=== PATIENT | female | born 1945 | race Caucasian/White ===

== ENCOUNTER 2021-11-25 19:09 | Inpatient (IN) ==
[2021-11-25] MEDS ORDERED: Naloxone 0.4 MG/ML INJ IVP PRN (23:36)
[2021-11-25] MEDS ORDERED: Ondansetron 4 MG/2 ML VIAL IVP PRN (23:36)
[2021-11-25] MEDS ORDERED: Azithromycin 500 MG in 0.9 % Sodium Chloride 250 ML IVPB SCH (23:45)
[2021-11-25] MEDS ORDERED: cefTRIAXone 1,000 MG in 0.9 % Sodium Chloride 10 ML IVP SCH (23:45)
[2021-11-25] MEDS: DilTIAZem 50 MG/50 ML IV.SOLN IVC SCH (23:59)
[2021-11-26] MEDS ORDERED: Dextrose Gel 15 GM/37.5 ML TUBE PO PRN ×2 (01:19)
[2021-11-26] MEDS ORDERED: *HR* Dextrose 50 % in Water (Syg) 50 ML SYRINGE IVP PRN (01:19)
[2021-11-26] MEDS ORDERED: D5% in Water 1,000 ML IVC PRN (01:19)
[2021-11-26] MEDS: DilTIAZem 50 MG/50 ML IV.SOLN IVC SCH (03:20)
[2021-11-26] MEDS: Ipratropium 1 PUFF INHALER IH SCH ×7 (03:31→23:34)
[2021-11-26 05:57] LABS: Alanine Aminotransferase 18 Units/L (7-52); Albumin/Globulin Ratio 0.9 (1.1-2.2); Alkaline Phosphatase 121 Units/L (34-104); Aspartate Amino Transferase 35 Units/L (13-39); BUN/Creatinine Ratio 28 (6-26); Bilirubin,Total 0.8 mg/dL (0.3-1.0); Blood Urea Nitrogen 28 mg/dL (8-23); Calcium 9.1 mg/dL (8.6-10.3); Carbon Dioxide 24 mEq/L (23-29); Chloride 105 mEq/L (98-107); Globulin 3.5 g/dL (2.4-3.5); Glucose 131 mg/dL (70-105); Magnesium 2.1 mg/dL (1.6-2.6); Osmolality,Calculated 297 (280-300); Phosphorous 2.7 mg/dL (2.7-4.5); Potassium 4.2 mEq/L (3.5-5.1); Sodium 140 mEq/L (136-145); Total Protein 6.5 g/dL (6.4-8.9); Troponin I 0.05 ng/mL (< 0.04); eGFR For African Americans > 60 (> 60); eGFR For Non-African Americans 54 (> 60)
[2021-11-26] MEDS: Insulin LISPRO 300 UNITS/3 ML VIAL SUBQ SCH ×2 (06:25→11:43)
[2021-11-26] MEDS ORDERED: Cefepime HCl 2,000 MG in 0.9 % Sodium Chloride 10 ML IVP SCH (08:00)
[2021-11-26 13:22] LABS: Hemoglobin 11.2 g/dL (11.5-15.4); Mean Corpuscular Hemoglobin 29.3 pg (28.0-33.3); Mean Corpuscular Volume 91.6 fL (83.0-100.0); Platelet Count 178 K/mcL (140-400); Red Blood Count 3.82 M/mcL (3.82-4.97); Red Cell Distribution Width 14.3 % (11.5-14.5); White Blood Count 10.5 K/mcL (4.3-11.1)
[2021-11-26] MEDS ORDERED: *HR* Metoprolol 5 MG/5 ML VIAL IVP PRN (13:36)
[2021-11-26 14:03] LABS: Basophils # 0.1 K/mcL (0.0-0.2); Burr Cells 1+ (Not Present); Lymphocytes # 1.5 K/mcL (0.6-4.6); Neutrophils # 8.9 K/mcL (1.6-8.9); Platelet Estimate Normal (Normal); Reactive Lymphocytes Present (Not Present)
[2021-11-26 14:04] LABS: Poikilocytosis 1+ (Not Present)
[2021-11-26] MEDS: Acetaminophen 325 MG TABLET PO PRN (15:22)
[2021-11-26] MEDS: Cefepime HCl 2,000 MG in 0.9 % Sodium Chloride 10 ML IVP SCH (21:02)
[2021-11-27 03:11] LABS: Alanine Aminotransferase 19 Units/L (7-52); Albumin 2.9 g/dL (3.5-5.7); Albumin/Globulin Ratio 0.9 (1.1-2.2); Alkaline Phosphatase 95 Units/L (34-104); Aspartate Amino Transferase 34 Units/L (13-39); BUN/Creatinine Ratio 33 (6-26); Bilirubin,Direct 0.1 mg/dL (0.0-0.2); Bilirubin,Indirect 0.5 mg/dL (0.0-1.0); Bilirubin,Total 0.6 mg/dL (0.3-1.0); Blood Urea Nitrogen 35 mg/dL (8-23); C-Reactive Protein 104 mg/L (Less than 10); Carbon Dioxide 24 mEq/L (23-29); Chloride 108 mEq/L (98-107); Globulin 3.3 g/dL (2.4-3.5); Glucose 131 mg/dL (70-105); Osmolality,Calculated 304 (280-300); Potassium 3.5 mEq/L (3.5-5.1); Sodium 142 mEq/L (136-145); Total Protein 6.2 g/dL (6.4-8.9); eGFR For African Americans > 60 (> 60); eGFR For Non-African Americans 50 (> 60)
[2021-11-27] MEDS: Ipratropium 1 PUFF INHALER IH SCH ×6 (04:30→22:55)
[2021-11-27] MEDS: Insulin LISPRO 300 UNITS/3 ML VIAL SUBQ SCH ×2 (07:41→17:50)
[2021-11-27] MEDS: Cefepime HCl 2,000 MG in 0.9 % Sodium Chloride 10 ML IVP SCH ×2 (08:43→20:55)
[2021-11-27] MEDS: Azithromycin 250 MG TABLET PO SCH (14:51)
[2021-11-28 03:00] LABS: BUN/Creatinine Ratio 39 (6-26); Blood Urea Nitrogen 39 mg/dL (8-23); Calcium 8.6 mg/dL (8.6-10.3); Carbon Dioxide 19 mEq/L (23-29); Chloride 108 mEq/L (98-107); Glucose 101 mg/dL (70-105); Osmolality,Calculated 296 (280-300); Potassium 4.1 mEq/L (3.5-5.1); Sodium 138 mEq/L (136-145); eGFR For African Americans > 60 (> 60); eGFR For Non-African Americans 54 (> 60)
[2021-11-28] MEDS: Ipratropium 1 PUFF INHALER IH SCH ×6 (03:50→23:57)
[2021-11-28 05:35] LABS: Basophils # 0.1 K/mcL (0.0-0.2); Basophils % 0.4 %; Eosinophils % 0.1 %; Hematocrit 32.8 % (35.3-44.9); Hemoglobin 10.4 g/dL (11.5-15.4); Immature Granulocytes % 1.9 % (0-4); Lymphocytes # 1.2 K/mcL (0.6-4.6); Lymphocytes % 8.5 %; Mean Corpuscular HGB Conc 31.7 g/dL (31.6-35.5); Mean Corpuscular Hemoglobin 29.3 pg (28.0-33.3); Mean Corpuscular Volume 92.4 fL (83.0-100.0); Mean Platelet Volume 10.2 fL (9.4-12.4); Monocytes # 0.7 K/mcL (0.0-1.3); Monocytes % 5.2 %; Neutrophils # 11.8 K/mcL (1.6-8.9); Nucleated Red Blood Cells 0.1 /100 WBC (0); Platelet Count 142 K/mcL (140-400); Red Blood Count 3.55 M/mcL (3.82-4.97); Red Cell Distribution Width 14.6 % (11.5-14.5); Segmented Neutrophils % 83.9 %
[2021-11-28] MEDS: Insulin LISPRO 300 UNITS/3 ML VIAL SUBQ SCH ×5 (08:58→16:28)
[2021-11-28] MEDS: Cefepime HCl 2,000 MG in 0.9 % Sodium Chloride 10 ML IVP SCH (09:12)
[2021-11-28] MEDS ORDERED: Cefdinir 300 MG CAPSULE PO SCH (12:00)
[2021-11-28] MEDS: Azithromycin 250 MG TABLET PO SCH (13:57)
[2021-11-28] MEDS: Cefdinir 300 MG CAPSULE PO SCH (20:38)
[2021-11-29] MEDS: Acetaminophen 325 MG TABLET PO PRN (01:27)
[2021-11-29] MEDS: Ipratropium 1 PUFF INHALER IH SCH ×5 (04:21→22:40)
[2021-11-29 05:49] LABS: Basophils % 0.4 %; Eosinophils # 0.1 K/mcL (0.0-0.6); Eosinophils % 1.2 %; Hematocrit 33.5 % (35.3-44.9); Hemoglobin 11.6 g/dL (11.5-15.4); Immature Granulocytes % 4.5 % (0-4); Lymphocytes # 1.7 K/mcL (0.6-4.6); Lymphocytes % 16.9 %; Mean Corpuscular HGB Conc 34.6 g/dL (31.6-35.5); Mean Corpuscular Hemoglobin 32.8 pg (28.0-33.3); Mean Corpuscular Volume 94.6 fL (83.0-100.0); Mean Platelet Volume 9.7 fL (9.4-12.4); Monocytes # 0.6 K/mcL (0.0-1.3); Monocytes % 5.7 %; Neutrophils # 7.2 K/mcL (1.6-8.9); Platelet Count 130 K/mcL (140-400); Red Blood Count 3.54 M/mcL (3.82-4.97); Red Cell Distribution Width 16.3 % (11.5-14.5); Segmented Neutrophils % 71.3 %
[2021-11-29 06:02] LABS: BUN/Creatinine Ratio 37 (6-26); Blood Urea Nitrogen 33 mg/dL (8-23); Calcium 8.5 mg/dL (8.6-10.3); Carbon Dioxide 24 mEq/L (23-29); Chloride 106 mEq/L (98-107); Glucose 96 mg/dL (70-105); Osmolality,Calculated 289 (280-300); Potassium 3.5 mEq/L (3.5-5.1); Sodium 136 mEq/L (136-145); eGFR For African Americans > 60 (> 60); eGFR For Non-African Americans > 60 (> 60)
[2021-11-29] MEDS: Cefdinir 300 MG CAPSULE PO SCH ×2 (09:23→21:05)
[2021-11-29] MEDS: Insulin LISPRO 300 UNITS/3 ML VIAL SUBQ SCH ×3 (09:23→17:37)
[2021-11-29 13:20] LABS: C-Reactive Protein 20 mg/L (Less than 10)
[2021-11-29] MEDS: Azithromycin 250 MG TABLET PO SCH (15:43)
[2021-11-30 02:47] LABS: Basophils % 0.3 %; Eosinophils # 0.1 K/mcL (0.0-0.6); Eosinophils % 0.8 %; Hematocrit 34.2 % (35.3-44.9); Hemoglobin 11.9 g/dL (11.5-15.4); Immature Granulocytes % 4.6 % (0-4); Lymphocytes # 1.6 K/mcL (0.6-4.6); Lymphocytes % 13.7 %; Mean Corpuscular HGB Conc 34.8 g/dL (31.6-35.5); Mean Corpuscular Hemoglobin 32.5 pg (28.0-33.3); Mean Corpuscular Volume 93.4 fL (83.0-100.0); Mean Platelet Volume 9.4 fL (9.4-12.4); Monocytes # 0.6 K/mcL (0.0-1.3); Monocytes % 5.1 %; Platelet Count 164 K/mcL (140-400); Red Blood Count 3.66 M/mcL (3.82-4.97); Red Cell Distribution Width 16.2 % (11.5-14.5); Segmented Neutrophils % 75.5 %; White Blood Count 11.9 K/mcL (4.3-11.1)
[2021-11-30 03:03] LABS: BUN/Creatinine Ratio 29 (6-26); Blood Urea Nitrogen 26 mg/dL (8-23); Calcium 8.5 mg/dL (8.6-10.3); Carbon Dioxide 27 mEq/L (23-29); Chloride 106 mEq/L (98-107); Glucose 75 mg/dL (70-105); Osmolality,Calculated 289 (280-300); Potassium 3.9 mEq/L (3.5-5.1); Sodium 138 mEq/L (136-145); eGFR For African Americans > 60 (> 60); eGFR For Non-African Americans > 60 (> 60)
[2021-11-30] MEDS: Ipratropium 1 PUFF INHALER IH SCH ×4 (04:28→23:15)
[2021-11-30] MEDS: Insulin LISPRO 300 UNITS/3 ML VIAL SUBQ SCH ×3 (07:41→16:00)
[2021-11-30] MEDS: dexAMETHasone 4 MG TABLET PO SCH (07:44)
[2021-11-30] MEDS: Cefdinir 300 MG CAPSULE PO SCH ×2 (07:44→21:45)
[2021-11-30] MEDS: Azithromycin 250 MG TABLET PO SCH (15:59)
[2021-12-01] MEDS: Ipratropium 1 PUFF INHALER IH SCH ×4 (03:53→22:21)
[2021-12-01] MEDS: Insulin LISPRO 300 UNITS/3 ML VIAL SUBQ SCH ×3 (08:12→17:11)
[2021-12-01] MEDS: dexAMETHasone 4 MG TABLET PO SCH (08:22)
[2021-12-01] MEDS: Cefdinir 300 MG CAPSULE PO SCH ×2 (08:23→20:12)
[2021-12-01] MEDS: Azithromycin 250 MG TABLET PO SCH (14:31)
[2021-12-01] MEDS: Acetaminophen 325 MG TABLET PO PRN (14:54)
[2021-12-02] MEDS: Ipratropium 1 PUFF INHALER IH SCH ×4 (03:54→21:48)
[2021-12-02 06:25] LABS: Basophils % 0.4 %; Eosinophils # 0.2 K/mcL (0.0-0.6); Eosinophils % 1.4 %; Hematocrit 35.6 % (35.3-44.9); Hemoglobin 11.3 g/dL (11.5-15.4); Immature Granulocytes % 4.5 % (0-4); Lymphocytes # 1.9 K/mcL (0.6-4.6); Lymphocytes % 18.5 %; Mean Corpuscular HGB Conc 31.7 g/dL (31.6-35.5); Mean Corpuscular Hemoglobin 28.9 pg (28.0-33.3); Mean Platelet Volume 9.5 fL (9.4-12.4); Monocytes # 0.5 K/mcL (0.0-1.3); Neutrophils # 7.4 K/mcL (1.6-8.9); Platelet Count 162 K/mcL (140-400); Red Blood Count 3.91 M/mcL (3.82-4.97); Red Cell Distribution Width 14.5 % (11.5-14.5); Segmented Neutrophils % 70.2 %; White Blood Count 10.5 K/mcL (4.3-11.1)
[2021-12-02 06:50] LABS: BUN/Creatinine Ratio 25 (6-26); Blood Urea Nitrogen 26 mg/dL (8-23); Calcium 8.3 mg/dL (8.6-10.3); Carbon Dioxide 25 mEq/L (23-29); Chloride 107 mEq/L (98-107); Glucose 82 mg/dL (70-105); Osmolality,Calculated 288 (280-300); Potassium 4.2 mEq/L (3.5-5.1); Sodium 137 mEq/L (136-145); eGFR For African Americans > 60 (> 60); eGFR For Non-African Americans 51 (> 60)
[2021-12-02] MEDS: Insulin LISPRO 300 UNITS/3 ML VIAL SUBQ SCH ×3 (08:57→16:32)
[2021-12-02] MEDS: dexAMETHasone 4 MG TABLET PO SCH (09:18)
[2021-12-02] MEDS: Cefdinir 300 MG CAPSULE PO SCH ×2 (09:18→20:40)
[2021-12-02] MEDS ORDERED: 0.9 % Sodium Chloride 500 ML ONE (11:29)
[2021-12-02] MEDS ORDERED: 0.9 % Sodium Chloride 500 ML IVC ONE ×2 (11:38→13:28)
[2021-12-02] MEDS: Azithromycin 250 MG TABLET PO SCH (14:00)
[2021-12-03] MEDS: Ipratropium 1 PUFF INHALER IH SCH ×2 (04:13→10:47)
[2021-12-03] MEDS: Insulin LISPRO 300 UNITS/3 ML VIAL SUBQ SCH ×3 (07:34→16:20)
[2021-12-03] MEDS: dexAMETHasone 4 MG TABLET PO SCH (07:34)
[2021-12-03] MEDS ORDERED: Ipratropium 1 PUFF INHALER IH PRN (13:32)
[2021-12-04] MEDS ORDERED: Benzonatate 100 MG CAPSULE PO PRN (03:56)
[2021-12-04] MEDS: Insulin LISPRO 300 UNITS/3 ML VIAL SUBQ SCH ×3 (08:03→17:58)
[2021-12-04] MEDS: dexAMETHasone 4 MG TABLET PO SCH (08:08)
[2021-12-05] MEDS: Insulin LISPRO 300 UNITS/3 ML VIAL SUBQ SCH ×2 (08:18→12:33)
[2021-12-05] MEDS: dexAMETHasone 4 MG TABLET PO SCH (08:27)
[2021-12-05 10:34] LABS: Hematocrit 37.8 % (35.3-44.9); Hemoglobin 11.9 g/dL (11.5-15.4); Mean Corpuscular HGB Conc 31.5 g/dL (31.6-35.5); Mean Corpuscular Hemoglobin 28.8 pg (28.0-33.3); Mean Corpuscular Volume 91.5 fL (83.0-100.0); Mean Platelet Volume 9.7 fL (9.4-12.4); Platelet Count 165 K/mcL (140-400); Red Blood Count 4.13 M/mcL (3.82-4.97); Red Cell Distribution Width 14.6 % (11.5-14.5); White Blood Count 12.6 K/mcL (4.3-11.1)
[2021-12-05 15:40] LABS: Influenza A PCR Negative (Negative); Influenza B PCR Negative (Negative); Resp. Syncytial Virus PCR Negative (Negative); SARS-CoV-2 by PCR (In House) Negative (Negative)
[2021-12-05 20:03] VITALS: BP 124/58; PULSE 83; TEMP 98.3; O2SAT 90
== END 2021-12-05 20:47 | DRG 871 ==
LOC: SUATTDRO 23:16 → ICNU 23:16 → 2NENU 11-26 19:44
PROVIDERS: ADMIT Pediatrics; ATTEND Internal Medicine